=== PATIENT | male | born 1960 | race Caucasian/White ===

== ENCOUNTER → 2023-01-23 | Outpatient (CLI) | payer OTHER ==
--- NOTE | 2023-01-23 11:45 | CT ---
EXAMINATION TYPE: CT elbow RT wo con DATE OF EXAM: 01/23/2023 COMPARISON: Outside radiograph 12/23/2022 HISTORY: 62-year-old male RT elbow pain, strain TECHNIQUE: CT of the right elbow without IV contrast. Coronal and sagittal reconstructions performed. 3-D reconstructions generated on a dedicated independent workstation. CT DLP: 237.60 mGycm Automated exposure control for dose reduction was used. FINDINGS: There is moderate degenerative change at both the radiocapitellar and ulnar trochlear joints with a c artilage and joint space narrowing. Subchondral cystic change and marginal spurring is present. There is a corticated ossific density measuring 6 mm at the lateral epicondyle likely reflecting sequ tim of prior injury at the common extensor tendon origin. No significant elbow joint effusion. There appears to be either bony spurring or loose bodies in the olecranon fossa measuring up to 7 mm. The triceps insertion and distal biceps tendon insertion both appear intact. IMPRESSION: RIGHT ELBOW: MODERATE RADIOCAPITELLAR AND ULNOTROCHLEAR JOINT OA. EITHER BONY SPURRING VERSUS LOOSE B ODIES MEASURING UP TO 7 MM IN THE OLECRANON FOSSA. NO JOINT EFFUSION OR ACUTE OSSEOUS ABNORMALITY SEE N.
--- NOTE | 2023-01-23 11:52 | CT ---
EXAMINATION TYPE: CT elbow LT wo con DATE OF EXAM: 01/23/2023 COMPARISON: None HISTORY: 62-year-old male M25.521, S53.409A, M19.021, LT elbow pain, strain TECHNIQUE: Contiguous axial scanning of the left elbow without IV contrast. Coronal and sagittal fabio nstructions performed. 3-D reconstructions generated on a dedicated independent workstation. Automated exposure control for dose reduction was used. FINDINGS: Moderate degenerative change in the radiocapitellar and ulnar trochlear joints, moderate to severe al fernando portions of the radiocapitellar joint with joint space narrowing, subchondral cystic change, edward inal spurring. A few tiny loose bodies are present. The triceps insertion and distal biceps tendon insertions appear intact. Small elbow joint effusion likely reactive due to degenerative change. No acute fracture, subluxation, dislocation seen. Tiny spurring at the lateral condyle suggesting chronic common extensor tendinopathy. IMPRESSION: MODERATE TO SEVERE RADIOCAPITELLAR AND ULNAR TROCHLEAR JOINT OA. SMALL JOINT EFFUSION LIKELY REACTIVE . NO ACUTE OSSEOUS ABNORMALITY SEEN.
== END | disposition home or self-care (01) ==
LOC: RADCTMAIN 08:39
PROVIDERS: ATTEND Orthopaedic Surgery
DX: S53.409A Unspecified sprain of unspecified elbow, initial encounter (principal); M19.021 Primary osteoarthritis, right elbow; M19.022 Primary osteoarthritis, left elbow; X58.XXXA Exposure to other specified factors, initial encounter